=== PATIENT | female | born 1965 | race Caucasian/White ===

== ENCOUNTER 2018-10-02 07:39 | Emergency (ER) | payer OTHER ==
[~2018-10-02] VITALS: Ht 175.3 cm; Wt 103.1 kg
[~2018-10-02 07:39] MED LIST: A/B OTIC15 ML; APAP/HYDROCODON1 T13 PO; CLINDAMYCIN HC300 MG PO; CLINDAMYCIN300 M1 PO; COL100 PO; IPRATROPIUM BROM3 M2 INH; LAC PO; LEVAQUIN750 MG PO; METHADONE HCL10 MG; METOPROLOL TART25 M1 PO; NORCO1 TA2 PO; ZES20 PO
[2018-10-02 07:44] VITALS: Ht 175.3 cm; Wt 103.1 kg
[2018-10-02 09:54] LABS: BASOPHIL % 0.2 % (0-2); PLATELET COUNT 261 x10^3mcL (130-400); RED CELL DISTRIBUTION WIDTH 14.5 % (11.5-14.5)
[2018-10-02 09:58] LABS: CALCIUM 8.9 mg/dL (8.5-10.1); CARBON DIOXIDE 30.4 mmol/L (21-32); CHLORIDE SERUM 101 mmol/L (98-107); CREATININE SERUM 0.9 mg/dL (0.6-1.0); GFR1 > 60 mL/min; GLUCOSE SERUM 135 mg/dL (74-106); POTASSIUM SERUM 3.9 mmol/L (3.5-5.1); SODIUM SERUM 137 mmol/L (136-145)
[2018-10-02 10:05] LABS: UA SPECIFIC GRAVITY >=1.030 (1.005-1.035); microscopic required? YES; urine erythrocyte NEGATIVE (NEGATIVE)
[2018-10-02 10:11] LABS: ALKALINE PHOSPHATASE 105 U/L (46-116); ALT/SGPT 25 U/L (14-59); AST/SGOT 12 U/L (15-37); BILIRUBIN TOTAL 0.3 mg/dL (0.20-1.00); T4(THYROXINE) 6.9 ug/dL (4.7-13.3)
[2018-10-02 11:39] VITALS: BP 145/87
== END 2018-10-02 11:39 | disposition left against medical advice (07) ==
LOC: ED 07:39
PROVIDERS: Emergency Medicine
DX: L03.116 Cellulitis of left lower limb (principal); I10 Essential (primary) hypertension; F17.210 Nicotine dependence, cigarettes, uncomplicated; Z71.6 Tobacco abuse counseling; Z98.890 Other specified postprocedural states; Z90.89 Acquired absence of other organs
CPT/HCPCS: 82962; 99406; J0295; J3490; J7030; Q0092

== ENCOUNTER 2019-01-17 09:36 | Inpatient (IN) | payer MEDICAID ==
[~2019-01-17] VITALS: Ht 175.3 cm; Wt 96.8 kg
--- NOTE | 2019-01-17 09:48 | NUR ---
EKG DONE IN TRIAGE.
--- NOTE | 2019-01-17 10:09 | NUR ---
PT BIB SELF C/O SENSATION TO CHEST "LIKE AN ELEPHANT IS SITTING ON MY CHEST" WITH INTERMITTENT L ARM "TINGLING" X1 WEEK, NO WEAKNESS NOTED UPON PERFORMING FIRESETTER AND PUSHES OF TAL UPPER AND LOWER EXTREMETIES. PT STS SHE HAS HAD A "SMOKERS COUGH FOR YEARS BECAUSE I SMOKE ABOUT A PACK TO A PACK AND A HALF A DAY". PT ALSO REPORTS HX OF IV HERION DRUG USE, STS LAST TIME SHE USED "THROUGH THE IV WAS YEARS AGO, BUT I SMOKED IT LAST NIGHT". PT IN NAD, PRODUCTIVE COUGH NOTED. PT PLACED ON FULL CM, DR HERNANDEZ COMPLETED MSE. MULTIPLE ATTEMPTS MADE BY MYSELF AND JOSÉ MANUEL AN FOR IV ACCESS WITH NO SUCCESS, DR HERNANDEZ MADE AWARE.
--- NOTE | 2019-01-17 10:29 | NUR ---
DR HERNANDEZ AT BEDSIDE WITH US TO ATTEMPT FOR IV ACCESS.
[2019-01-17 10:38] LABS: BASOPHIL % 1.5 % (0-2); PLATELET COUNT 278 x10^3mcL (130-400); RED CELL DISTRIBUTION WIDTH 14.3 % (11.5-14.5)
[2019-01-17 10:42] LABS: CALCIUM 9.3 mg/dL (8.5-10.1); CARBON DIOXIDE 25.7 mmol/L (21-32); CHLORIDE SERUM 106 mmol/L (98-107); GFR1 > 60 mL/min; GLUCOSE SERUM 97 mg/dL (74-106); POTASSIUM SERUM 3.8 mmol/L (3.5-5.1); SODIUM SERUM 141 mmol/L (136-145)
[2019-01-17 10:47] LABS: ALBUMIN 3.5 g/dL (3.4-5.0); ALKALINE PHOSPHATASE 107 U/L (46-116); ALT/SGPT 27 U/L (14-59); AST/SGOT 12 U/L (15-37); BILIRUBIN TOTAL 0.26 mg/dL (0.20-1.00); TOTAL PROTEIN, SERUM 8.2 g/dL (6.4-8.2)
--- NOTE | 2019-01-17 11:17 | NUR ---
PT IN POSITION OF COMFORT, STS "I FEEL A LITTLE BETTER", NAD NOTED, ON FULL CM.
--- NOTE | 2019-01-17 12:09 | NUR ---
NICOTINE PATCH PLACED TO L UPPER ARM.
[2019-01-17 12:10] VITALS: BP 166/84
--- NOTE | 2019-01-17 12:20 | NUR ---
LUNCH TRAY GIVEN TO PT.
--- NOTE | 2019-01-17 13:04 | NUR ---
REPORT GIVEN TO ELSIE AN, TO ASSUME CARE OF PT.
--- NOTE | 2019-01-17 13:30 | NUR ---
RECEIVED PT FROM ED VIA ERNEY BY PRIMARY NURSE ELSIE. PT CAME IN DUE TO CHEST PAIN AND LEFT ARM PAIN X1 WEEK. AAOX4. DENIES HEADACHE/DIZZINESS. ABLE TO FOLLOW COMMANDS. C/O SOB WORSE ON AMBULATION, LUNG SOUNDS DIMINISHED ON THE BASES, O2 SAT=95%, ON 3LPM/NC. HAS CHRONIC DRY COUGH. DENIES CHEST PAIN/PRESSURE AT THIS TIME, SR ON THE MONITOR. DENIES ABDOMINAL DISCOMFORT. W/ BLE ERYTHEMA AND SCABS, KAT. W/ BLW SWELLING, LLE>RLE. WEAK PEDAL PULSES. C/O NUMBNESS AND TINGLING SENSATION ON THE LUE. SIDE RAILS UPX2. CALL LIGHT ON REACH. PRIMARY NURSE ELSIE AT BEDSIDE FOR CONTINUITY OF CARE
--- NOTE | 2019-01-17 13:30 | NUR ---
PT LOOKS TO BE IN NO ACUTE DISTRESS AND DENIES ANY PAIN AT THIS TIME. PT HAS NORCO ORDERED TID, ORGAN FIXER MANUEL STATED WILL CHANGE TO PRN. WILL HOLD SCHEDULED DOSE OF NORCO.
[2019-01-17 13:37] VITALS: BP 140/81
[2019-01-17 13:44] VITALS: Ht 175.3 cm; Wt 96.8 kg
--- NOTE | 2019-01-17 15:50 | NUR ---
PT IS LAYING DOWN IN BED WITH HOB UP RESTING WITH EYES CLOSED. PT LOOKS TO BE IN NO ACUTE DISTRESS AT THIS TIME. RESPIRATIONS EVEN AND UNLABORED ON 3L NC. IV SITE PATENT WITH NO SIGNS OF ERYTHEMA OR SWELLING AND IS H/L. BED IN LOWEST POSITION, CALL LIGHT WITHIN REACH. WILL CONTINUE TO MONITOR.
[2019-01-17 16:21] VITALS: BP 127/62
--- NOTE | 2019-01-17 18:50 | NUR ---
PT IS LAYING DOWN IN BED WITH HOB UP RESTING WITH EYES CLOSED. PT LOOKS TO BE IN NO ACUTE DISTRESS AT THIS TIME. RESPIRATIONS EVEN AND UNLABORED ON 3L NC. IV SITE PATENT WITH NO SIGNS OF ERYTHEMA OR SWELLING AND IS H/L. PT REFUSED EVENING LABS AND REQUESTED THAT LABS BE DRAWN IN THE MORNING. CALLED MATHEMATICS IMPROVEMENT TEACHER MANUEL, AWAITING CALL BACK. BED IN LOWEST POSITION, CALL LIGHT WITHIN REACH. WILL ENDORSE TO ONCOMING SHIFT.
--- NOTE | 2019-01-17 19:05 | NUR ---
RECEIVED PT FROM PREVIOUS SHIFT NURSE. PT AOX4, DENIES CAMPBELL/DIZZINESS. TELE #[id number], NSR, HR 74. DENIES CP/PRESSURE. DENIES SOB/DIFFICULTY BREATHING, ON 3L NC. GEN WEAKNESS. AMBULATORY. IV TO R. CEPHALIC, INTACT AND PATENT. BED IN LOWEST POSITION. CALL LIGHT WITHIN REACH. WILL CONTINUE TO MONITOR.
--- NOTE | 2019-01-17 20:39 | NUR ---
ATTEMPTED TO FLUSH PT IV AND ADMINISTER PROTONIX IV, IV WOULD NOT FLUSH. NO REDNESS/INFILTRATION NOTED. PT REFUSING ANOTHER IV INSERTION. PAGED DR. NOEL.
--- NOTE | 2019-01-17 20:47 | NUR ---
DR. NOEL AWARE OF PT IV. IV REMOVED, TIP INTACT.
[2019-01-17 20:50] VITALS: BP 112/68
--- NOTE | 2019-01-18 02:00 | NUR ---
PT RESTING IN BED. RR EVEN AND UNLABORED. IN NO ACUTE DISTRESS. CALL LIGHT WITHIN REACH. BED IN LOWEST POSITION. WILL CONTINUE TO MONITOR.
--- NOTE | 2019-01-18 03:42 | NUR ---
PT REFUSED TROPONIN LAB DRAW, DR. NOEL MADE AWARE.
[2019-01-18 05:57] VITALS: BP 100/49
[2019-01-18 06:00] VITALS: BP 136/74
--- NOTE | 2019-01-18 06:47 | NUR ---
PT REFUSED AM LAB DRAWS. DR. NOEL NOTIFIED VIA [facility].
--- NOTE | 2019-01-18 07:05 | NUR ---
RECEIVED PT FROM NIGHT NURSE. PT IS LAYING DOWN IN BED WITH HOB UP RESTING. PT LOOKS TO BE IN NO ACUTE DISTRESS AT THIS TIME AND DENIES ANY PAIN. RESPIRATIONS EVEN AND UNLABORED ON 2L NC. NO IV SITE, PT REFUSED IV, DR. KASPER. BED IN LOWEST POSITION, CALL LIGHT WITHIN REACH. WILL CONTINUE TO MONITOR.
[2019-01-18 08:02] VITALS: BP 132/76
--- NOTE | 2019-01-18 09:06 | NUR ---
PT IS LAYING DOWN IN BED WITH HOB UP. PT IS IRRITABLE AND COMPLAINING THAT SHE WANTS TO GO HOME BECAUSE SHE CANNOT GET ANY SLEEP HERE SINCE PEOPLE KEEP COMING IN TO HER ROOM. ASKED PT TO WAIT FOR TO COME IN TO SEE WHEN SHE CAN GO HOME, PT AGREED. NO IV ACCESS, PT REFUSED, AWARE. CALL LIGHT WITHIN REACH. WILL CONTINUE TO MONITOR.
[2019-01-18 11:49] VITALS: BP 132/57
--- NOTE | 2019-01-18 12:30 | NUR ---
PT IS WALKING AROUND ON ROOM AND 2 FAMILY MEMBERS AT BEDSIDE. PT CHANGED INTO PERSONAL CLOTHES AND PT STATES THAT SHE IS GOING TO GO FOR A WALK, WHEN INFORMING PT THAT WHEN WALKING SHE MUST STAY ON UNIT PT ASKED IF SHE CAN GO OUTSIDE TO SMOKE A CIGARRETTE. INFORMED PT AND FAMILY MEMBERS THAT PT MUST STAY ON THE UNIT UNLESS PLANNING TO LEAVE AMA AND PTS ARE UNABLE TO SMOKE WHILE ADMITTED. PT AND FAMILY MEMBERS VERBALIZED UNDERSTANDING. PT REQUESTING TO SPEAK WITH THE DR TO KNOW WHEN SHE IS ABLE TO LEAVE. INFORMED PT THAT WAITING FOR CARDIOLOGY CONSULT TO SEE HER BEFORE BEING DISCHARGED. PT AGREED TO STAY AND IS NOW LAYING DOWN IN BED WITH HOB UP. CALL LIGHT WITHIN REACH. WILL CONTINUE TO MONITOR.
[2019-01-18 16:20] VITALS: BP 156/88
--- NOTE | 2019-01-18 16:26 | NUR ---
PT REMOVED TELE MONITOR AND IS CHANGED INTO PERSONAL CLOTHES AND STATED THAT SHE IS GOING TO LEAVE AMA. INFORMED PT OF THE RISK OF LEAVING AMA, PT VERBALIZED UNDERSTANDING AND STATES THAT SHE WOULD STILL LIKE TO LEAVE AT THIS TIME. ASKED PT IF SHE CAN WAIT UNTIL ABLE TO FIND OUT WHEN LIFE ASSURANCE REPRESENTATIVE WILL BE IN HOSPITAL AND PT AGREED. PT ASKED IF SHE CAN GO OUTSIDE UNTIL LIFE ASSURANCE REPRESENTATIVE GETS HERE, INFORMED PT OF THE OPTION TO GET A NICOTINE PATCH, PT REFUSED. LIFE ASSURANCE REPRESENTATIVE IN HOUSE AT THIS TIME, INFORMED PT AND PT AGREED TO STAY UNTIL LIFE ASSURANCE REPRESENTATIVE TALKS WITH HER. FAMILY MEMBERS AT BEDSIDE.
[2019-01-18 18:15] VITALS: BP 156/88
[2019-01-18] MEDS ORDERED: METOPROLOL SUCC25 M2 PO (18:16)
--- NOTE | 2019-01-18 18:49 | NUR ---
PT AWAKE, ALERT AND ORIENTED AT TIME OF DISCHARGE. PT LOOKS TO BE IN NO ACUTE DISTRESS AND DENIES ANY PAIN AT TIME OF DISCHARGE. PT DISCHARGED HOME AND WALKED TO LOBBY ACCOMPANIED BY NURSE AND FAMILY MEMBER WITH BELONGINGS IN HAND. PROVIDED PT WITH EDUCATION AND PRESCRIPTION INFORMATION. INSTRUCTED PT TO PSYCHIATRIC TECHNICIAN ASSISTANT PRESCRIPTIONS AT [facility] [place], [employer] CALLED IN PRESCRIPTION FOR PT TO PSYCHIATRIC TECHNICIAN ASSISTANT. PT VERBALIZED UNDERSTANDING. PT STATED DOES NOT HAVE A PCP AT THIS TIME. INSTRUCTED PT TO CALL INSURANCE AND GET A PCP AND GET FOLLOW UP APPOINTMENT WITH PCP WITHIN 1 WEEK OF DISCHARGE. PT VERBALIZED UNDERSTANDING OF DISCHARGE. ID BANDS REMOVED. ALL QUESTIONS AND CONCERNS ADDRESSED.
== END 2019-01-18 18:47 | disposition home or self-care (01) | DRG 203 ==
LOC: ED 09:36 → DU 11:51
PROVIDERS: Emergency Medicine; ADMIT Internal Medicine
DX: R07.9 Chest pain, unspecified (principal); F11.10 Opioid abuse, uncomplicated; F19.10 Other psychoactive substance abuse, uncomplicated; R20.2 Paresthesia of skin; I10 Essential (primary) hypertension; F17.210 Nicotine dependence, cigarettes, uncomplicated; Z91.19 Patient's noncompliance with other medical treatment and regimen; Z68.32 Body mass index [BMI] 32.0-32.9, adult
CPT/HCPCS: 99406; G0378; J3490; J7620; Q0092

== ENCOUNTER 2019-06-18 04:05 | Emergency (ER) | payer MEDICAID ==
[~2019-06-18] VITALS: Ht 175.3 cm; Wt 86.2 kg
[~2019-06-18 04:05] MED LIST changes: +METOPROLOL SUCC25 M2 PO
[2019-06-18 04:06] VITALS: Ht 175.3 cm; Wt 86.2 kg
[2019-06-18 05:18] VITALS: BP 157/95
== END 2019-06-18 05:18 | disposition left against medical advice (07) ==
LOC: ED 04:05
DX: Z53.21 Procedure and treatment not carried out due to patient leaving prior to being seen by health care provider (principal)